=== PATIENT | male | born 2000 | race Caucasian/White ===

== ENCOUNTER 2023-06-28 12:05 | Outpatient (AMB) | payer BC, SELFPAY ==
--- NOTE | 2023-06-28 13:29 | MHC.OFFWIV ---
Intake Vital Signs 06/28/23 13:38 Height 5 ft 3 in Weight 155 lb BMI 27.5 BP 150/80 H Blood Pressure Location Lt brachial Position Sitting Pulse 95 Pulse Source Pulse Oximeter Temp 99.6 F Temp Source Temporal Artery Scan Pulse Oximetry (%) 98 Oxygen Delivery Method Room Air Intake Visit Reasons: EP throat pain strep [phone] Intake Note: pt is here today for throat pain started yesterday Patient Tobacco Use Status: Current everyday Tobacco user Allergies No Known Allergies Allergy (Verified 06/28/23 13:57) Medication List - Last Reconciled 06/28/23 by Demetrius Shelton MD No Known Home Meds Do you need a note to return to daycare/school/sports/work: Yes HPI EP throat pain strep [phone] HPI Details Patient presents for a sick visit. Reporting symptoms of sinus congestion, sore throat and difficulty swallowing. Low-grade fever. No family member is sick. No recent travel. Patient reports symptoms of malaise and fatigue. PFS Social History Patient Tobacco Use Status: Current everyday Tobacco user Physical Exam Vital Signs: Last Vital Signs Temp 99.6 F 06/28/23 13:38 Pulse 95 06/28/23 13:38 BP 150/80 H 06/28/23 13:38 Pulse Ox 98 06/28/23 13:38 Oxygen Delivery Method Room Air 06/28/23 13:38 BMI result Body Mass Index 27.5 Const General: cooperative and healthy appearing Nutritional Appearance: well nourished Orientation/consciousness: patient oriented x3 Limitations: no limitations HEENT Head: Yes normal to inspection Eyes General: appearance normal, both eyes and all related structures Neck Neck: Yes normal visual inspection Chest Chest palpation & inspection: normal palpation of entire chest wall Resp Effort & Inspection: normal respiratory effort Neuro General: patient oriented x3 Assessment & Plan Assessment & Plan (1) Upper respiratory tract infection: Code(s): J06.9 - Acute upper respiratory infection, unspecified Plan: Antibiotics ordered. Increase fluid intake. Tylenol for aches and pains. If symptoms worsen, follow-up here for a recheck. Coding Level of Care Code Est Pt Level 3 (90865) Diagnoses Upper respiratory tract infection J06.9
[2023-06-28 13:38] VITALS: BP 150/80; PULSE 95; TEMP 37.6; O2SAT 98; BMI 27.5
== END 2023-06-28 14:36 | disposition home or self-care (01) ==
PROVIDERS: PCP Pediatrics; Visit Provider Internal Medicine
DX: J06.9 Acute upper respiratory infection, unspecified (principal); J02.9 Acute pharyngitis, unspecified
CPT/HCPCS: 87880; 99213

== ENCOUNTER 2024-04-02 09:11 | Emergency (ER) | payer BC, SELFPAY ==
--- NOTE | ~2024-04-02 | XR_ITS ---
EXAMINATION: XR CHEST CLINICAL INFORMATION: cough, sob COMPARISON: None available TECHNIQUE: 2 views of the chest were obtained. FINDINGS: No significant abnormality is noted involving the heart, lungs, mediastinum, bony thorax or soft tissues. XR/XR chest 2V IMPRESSION: Unremarkable examination. Electronically signed by: Romario Guevara MD 04/02/2024 11:46 AM [facility] [place]
[2024-04-02 09:46] VITALS: BP 145/91; PULSE 92; RESP 18; TEMP 36.7; O2SAT 97; BMI 24.2
[2024-04-02 10:07] LABS: IDNOW Serial# 08D9AD1C; Strep A Nucleic Acid Negative (Negative)
[2024-04-02 10:20] VITALS: BP 129/72; PULSE 97; RESP 18; TEMP 37.6; O2SAT 97
[2024-04-02 10:34] LABS: Influenza A PCR NEGATIVE (Negative); Influenza B PCR NEGATIVE (Negative); Resp Syncy Virus RNA Qual PCR NEGATIVE (Negative); SARS COV2 PCR INHOUSE NEGATIVE (Negative)
--- NOTE | 2024-04-02 10:59 | ED.URI ---
HPI - URI/Sore Throat General Chief Complaint: Upper Respiratory Symptoms Stated Complaint: bronchitis, diff breathing Time Seen by Provider: 04/02/24 10:04 Source: patient, RN notes reviewed and old records reviewed Mode of arrival: ambulatory History of Present Illness ED Provider: Marita Gao PA-C [facility] Narrative: 24-year-old male with a past medical history of asthma to ED complaining of Productive cough, SOB x1 week. Admits was seen at urgent care last week on 03/31, diagnosed with bronchitis, started on Tessalon Perle, Azithromycin and Albuterol inhaler without relief. Denies fever/chills, pedal edema, recent travel, sick contacts. Has been taking medications as prescribed Related Data Previous Rx's ?Medication ?Instructions ?Recorded azithromycin 250 mg tablet See Rx Instructions PO .COMPLEX #6 06/28/23 tabs prednisone 20 mg tablet 40 mg (2 x 20 mg) PO DAILY 5 days 04/02/24 #10 tabs Allergies Allergy/AdvReac Type Severity Reaction Status Date / Time No Known Allergies Allergy Verified 04/02/24 09:47 Review of Systems Review of Systems: Yes all other systems are reviewed and are negative Constitutional: Constitutional: Reports as per [facility] Past Medical History Attestation statement: The following information was validated with the patient. Source: old records reviewed Social History Social History Patient Tobacco Use Status: Current everyday Tobacco user Advance Directives: No Advance Directives Information Provided: Yes Do you have a plan to hurt others: No Plan Physical Exam Vital Signs: Vital Signs: Last Vital Signs Temp 98.5 F 04/02/24 12:11 Pulse 99 04/02/24 12:11 Resp 20 04/02/24 12:11 BP 132/72 04/02/24 12:11 Pulse Ox 95 04/02/24 12:11 O2 Del Method Room Air 04/02/24 12:11 BMI result Body Mass Index 24.2 Const: General: cooperative, healthy appearing and no acute distress Orientation/consciousness: patient oriented x3 Limitations: no limitations HEENT: Head: Yes normal to inspection and Yes atraumatic Ears: hearing grossly normal bilaterally General nose exam: Normal external nose present Face and sinus: Yes normal facial exam Mouth: Normal oral and palatal mucosa present Throat: Yes posterior oropharynx normal, Yes tonsils normal, Yes uvula midline, No abnormal tonsil, No peritonsillar mass, No uvula laterally displaced and No uvular edema Eyes: General: appearance normal, both eyes and all related structures EOM: EOMs intact bilaterally Neck: Neck: Yes normal visual inspection and Yes no meningeal signs Resp: Effort & Inspection: normal respiratory effort, Actively coughing Quality: dry and no respiratory distress Auscultation: clear to auscultation bilaterally, no crackles and no wheezes Cardio: Rate: regular rate Heart sounds: S1 normal heart sound present and S2 normal heart sound present Skin: Rashes: no rashes Wounds: no wounds Neuro: General: patient oriented x3, tone normal and no meningeal signs Cranial nerves: Yes CN's II-XII intact bilaterally Gait exam (Neuro): Normal gait present Extrem: General: Yes normal to inspection Course Course Course Narrative: -1203--lungs remain CTA after DuoNeb. Viral studies negative, rapid strep negative XR chest 2V IMPRESSION: Unremarkable examination. > will start patient on prednisone. Recommended continuation of previously prescribed antibiotics/Tessalon Perles and use of albuterol inhaler Results discussed with patient including worrisome signs and symptoms and strict return precautions, and when to return to the emergency department. They verbalized understanding and feel safe for discharge at this time. Medications Administered Discontinued Medications Generic Name Dose Route Start Last Admin Trade Name Freq PRN Reason Stop Dose Admin Albuterol Sulfate 2.5 mg/ 0 mg 04/02/24 10:59 04/02/24 11:05 Albuterol/Ipratropium 3 ml INHALE 04/02/24 11:00 5 dose ONCE ONE Administration Medical Decision Making Medical Decision Making [facility] Narrative: 24-year-old male with a past medical history of asthma to ED complaining of Productive cough, SOB x1 week. Admits was seen at urgent care last week on 03/31, diagnosed with bronchitis, started on Tessalon Perle, Azithromycin and Albuterol inhaler without relief. On exam vital signs stable, NAD, nontoxic appearing, no respiratory distress, lungs CTA, oropharynx WNL. Concern for viral illness vs continued bronchitis vs pneumonia. Low suspicion for ACS/PE. Patient currently still on antibiotics Plan: Viral testing, rapid strep, CXR, ED bronch protocol Please refer to course for remaining clinical decision making, interpretation of labs/imaging results, and discussions with consultants and/or family members. Differential Diagnosis Differential Diagnoses: The differential diagnosis associated with the presentation includes As above Lab Data MDM Lab Attestation statement: I reviewed the patient's lab results. Labs: Lab Results 04/02/24 04/02/24 Range/Units 09:52 09:53 Influenza Type A (PCR) NEGATIVE (Negative) Influenza Type B (PCR) NEGATIVE (Negative) RSV RNA Qual (PCR) NEGATIVE (Negative) SARS-CoV-2 RNA (RT-PCR) NEGATIVE (Negative) S. pyogenes GrpA MAYRA Negative (Negative) Independent Interpretation I performed an independent interpretation of an: Plain X-Ray Radiology Impression Discussion of test interpretation with radiology: I have reviewed the radiologist's reading. External Record Review External record reviewed: Inpatient record, Office record, Outpatient record, Prior outpatient labs, Prior outpatient radiology, Primary care record and Outside ED record Tests considered The following testing was considered but not selected: As above Prescription Management I considered prescription management with: Pain Medication and Antibiotic Chronic Conditions Patient?s care impacted by: Other (Asthma) Social Determinants Patient?s care significantly limited by Social Determinants of Health including: Other Social Determinant of Health Discharge Plan Discharge Clinical Impression: Bronchitis Patient Disposition: Home, Self-Care Instructions: Acute Bronchitis (ED) Additional Instructions: You tested negative for COVID, flu, RSV, strep throat Your x-ray does not show pneumonia Please continue taking previously prescribed antibiotics and other medications In addition start taking prednisone as prescribed If your symptoms persist or worsen, you have constant worsening shortness of breath, chest pain, productive cough return to the emergency department Prescriptions: New prednisone 20 mg tablet 40 mg PO DAILY 5 Days Qty: 10 0RF No Action azithromycin 250 mg tablet See Rx Instructions PO .COMPLEX Qty: 6 0RF Rx Instructions: take 500 mg today (day 1), then 250 mg for 4 days (days 2-5) PO Referrals: Physician,Unknown J [Primary Care Provider] - Stand Alone Forms: Work/School Release Interventions: ED Discharge Assessment Last Done: 04/02/24 12:11 Discharge Date/Time: 04/02/24 12:13 Print Language: Icelandic
[2024-04-02 11:00] VITALS: PULSE 99; RESP 20; O2SAT 98
[2024-04-02] MEDS: Albuterol Sulfate 2.5 MG, Albuterol/Iprat 2.5/0.5MG 3 ML 3 ML INHALE (11:05)
[2024-04-02 12:11] VITALS: BP 132/72; PULSE 99; RESP 20; TEMP 36.9; O2SAT 95
== END 2024-04-02 12:13 | disposition home or self-care (01) ==
PROVIDERS: Emergency Provider Emergency Medicine
DX: J40 Bronchitis, not specified as acute or chronic (principal); R06.02 Shortness of breath; Z03.818 Encounter for observation for suspected exposure to other biological agents ruled out; R05.9 Cough, unspecified
CPT/HCPCS: 0241U; 71046; 87651; 94640; 99284